=== PATIENT | male | born 1980 | race African-American/Black ===

== ENCOUNTER 2017-05-13 20:49 | Emergency (ER) | payer MEDICAID, OTHER ==
[~2017-05-13] VITALS: Ht 177.8 cm; Wt 91.0 kg
[2017-05-14 00:01] VITALS: BP 129/77
[2017-05-14] MEDS ORDERED: AZITHROMYCIN 500 MG TABLET PO ONE (00:15)
[2017-05-14] MEDS ORDERED: CEFTRIAXONE SODIUM 250 MG/VIAL IM ONE (00:15)
[2017-05-14] MEDS ORDERED: LIDOCAINE HCL 1% 20ML VIAL (Pyxis) INJ INFIL ONE (00:30)
[2017-05-14 00:40] LABS: CLARITY URINE CLEAR (CLEAR); COLOR URINE YELLOW (YELLOW); GLUCOSE URINE NEGATIVE (NEGATIVE); KETONES URINE NEGATIVE (NEGATIVE); LEUKOCYTE ESTERASE URINE 2+ (NEGATIVE); NITRITE URINE NEGATIVE (NEGATIVE); OCCULT BLOOD URINE 2+ (NEGATIVE); PH URINE 5.5 (4.5-8.0); PROTEIN URINE NEGATIVE (NEGATIVE); SPECIFIC GRAVITY URINE 1.031 (1.005-1.030)
[2017-05-18 19:09] LABS: CHLAMYDIA TRACHOMATIS NAA Negative (Negative); NEISSERIA GONORRHOEAE NAA Negative (Negative)
== END 2017-05-14 01:45 | disposition home or self-care (01) ==
LOC: ER 20:49
DX: N39.0 Urinary tract infection, site not specified (principal); F17.200 Nicotine dependence, unspecified, uncomplicated
CPT/HCPCS: 81001; 87491; 87591; 96372; 99284; J0696; J3490; Z7610

== ENCOUNTER 2017-06-26 10:10 | Emergency (ER) | payer OTHER ==
[~2017-06-26] VITALS: Ht 180.3 cm; Wt 91.0 kg
[2017-06-26 10:26] VITALS: BP 130/84
== END 2017-06-26 16:18 | disposition left against medical advice (07) ==
LOC: ER 10:22
DX: M79.673 Pain in unspecified foot (principal); Z53.21 Procedure and treatment not carried out due to patient leaving prior to being seen by health care provider

== ENCOUNTER 2022-07-22 00:45 | Emergency (ER) | payer OTHER ==
[~2022-07-22] VITALS: Ht 182.9 cm; Wt 96.0 kg
[2022-07-22] MEDS ORDERED: MORPHINE SULFATE 4 MG/ML CPJ (NOT FOR IM USE) IV ONE ×3 (01:00→05:00)
[2022-07-22 01:39] LABS: BASOPHILS % 0.6 % (0.0-2.0); EOSINOPHILS % 0.8 % (0.0-5.0); HEMATOCRIT. 50.8 % (42.0-52.0); LYMPHOCYTES % 25.3 % (20.0-50.0); MEAN CORPUSCULAR HEMOGLOBIN 28.5 pg (28.0-32.0); MEAN CORPUSCULAR VOLUME 85.4 fL (80.0-94.0); MEAN PLATELET VOLUME 7.1 fl (7.4-10.4); NEUTROPHILS % 67.3 % (40.0-76.0); PLATELET 510 x1000/uL (130-400); RED BLOOD CELL COUNT 5.95 mill/uL (4.7-6.1); RED CELL DISTRIBUTION WIDTH 13.5 % (11.6-14.6)
[2022-07-22 01:49] LABS: CHLORIDE 101 mEq/L (98-107)
[2022-07-22 01:55] LABS: ETHANOL BLOOD < 10 mg/dL
[2022-07-22] MEDS ORDERED: LIDO700A30 TP (04:57)
[2022-07-22] MEDS ORDERED: IBUP-2029 MT (04:57)
[2022-07-22 14:24] VITALS: BP 127/84
== END 2022-07-22 14:26 | disposition home or self-care (01) ==
LOC: ER 00:54
DX: M79.672 Pain in left foot (principal); M54.50 Low back pain, unspecified; R07.89 Other chest pain; R07.81 Pleurodynia; R26.89 Other abnormalities of gait and mobility; G89.11 Acute pain due to trauma; R03.0 Elevated blood-pressure reading, without diagnosis of hypertension; W17.1XXA Fall into storm drain or manhole, initial encounter; Y93.89 Activity, other specified; Y92.89 Other specified places as the place of occurrence of the external cause
CPT/HCPCS: 36415; 70450; 71250; 72125; 72128; 72131; 73700; 74176; 80053; 80320; 85025; 86850; 86900; 86901; 96374; 96376; 99284; J2270; G0480